=== PATIENT | female | born 1945 | race Asian ===

== ENCOUNTER 2016-12-19 07:48 | Emergency (ER) | payer OTHER ==
[2016-12-19 07:57] VITALS: BP 115/50
--- NOTE | 2016-12-19 07:57 | UC ---
Bite Injury/Animal HPI - HPI Summary HPI Summary: 71 year old female presents with complains of dog bite on lower leg. - History of Current Complaint Stated Complaint: DOG BITE Time Seen by Provider: 12/19/16 07:56 - Allergies/Home Medications Allergies/Adverse Reactions: Allergies Allergy/AdvReac Type Severity Reaction Status Date / Time No Known Allergies Allergy Verified 10/16/12 08:20 PMH/Surg Hx/FS Hx/Imm Hx - Surgical History Surgical History: None Review of Systems Constitutional: Negative Skin: Other - dog bite lower leg Eyes: Negative ENT: Negative Respiratory: Negative Cardiovascular: Negative Gastrointestinal: Negative Genitourinary: Negative Motor: Negative Neurovascular: Negative Musculoskeletal: Negative Neurological: Negative Psychological: Negative All Other Systems Reviewed And Are Negative: Yes Physical Exam Triage Information Reviewed: Yes Eye Exam: Normal ENT Exam: Normal Dental Exam: Normal Neck exam: Normal Neck: Positive: 1 Respiratory Exam: Normal Cardiovascular Exam: Normal Abdominal Exam: Normal Musculoskeletal Exam: Normal Neurological Exam: Normal Psychological Exam: Normal Skin: Positive: Other - dog bite lower leg Bite Injury Course/Dx - Differential Dx/Diagnosis Provider Diagnoses: dog bite lower leg Discharge - Discharge Plan Condition: Stable Disposition: HOME Prescriptions: Amoxicillin/Clavulanate TAB* [Augmentin TAB 875*] 875 mg PO BID #20 tab Patient Education Materials: Animal Bite (ED) Referrals: Oma Stewart MD [Primary Care Provider] - If Needed
[2016-12-19] MEDS ORDERED: Tetan/Diph/Pertus SYR(Tdap)* 0.5 ML SYR(BOOSTRIX) use SYR IM ONE (08:44)
== END 2016-12-19 10:05 | disposition home or self-care (01) ==
LOC: UCEAST 07:48
DX: S81.859A Open bite, unspecified lower leg, initial encounter (principal); W54.0XXA Bitten by dog, initial encounter; Y93.9 Activity, unspecified; Y92.9 Unspecified place or not applicable; Y99.9 Unspecified external cause status
CPT/HCPCS: 90471; 90715; 99212; G0463